=== PATIENT | female | born 1990 | race Two or more races ===

== ENCOUNTER 2024-06-01 08:48 | Emergency (ER) | payer OTHER ==
[2024-06-01 09:11] VITALS: BMI 26.4
[2024-06-01] MEDS ORDERED: IBUPROFEN 400 MG TABLET (FP) PO ONE (10:12)
[2024-06-01] MEDS ORDERED: ACETAMINOPHEN 500 MG TABLET (FP) ONE (10:12)
[2024-06-01] MEDS ORDERED: LIDOCAINE VISCOUS 2% ORAL/TOP 15 ML UNIT-DOSE CUP ONE (10:16)
[2024-06-01] MEDS: IBUPROFEN 400 MG TABLET (FP) PO ONE (10:28)
[2024-06-01] MEDS: LIDOCAINE VISCOUS 2% ORAL/TOP 15 ML UNIT-DOSE CUP MM ONE (10:29)
[2024-06-01] MEDS: ACETAMINOPHEN 500 MG TABLET (FP) PO ONE (10:29)
[2024-06-01 10:34] LABS: THROAT:GRP A STREP NOT DETECTED (NOTDETECTED)
[2024-06-01 12:42] VITALS: BP 110/58; PULSE 97; RESP 16; TEMP 98.3
== END 2024-06-01 13:29 | disposition home or self-care (01) ==
LOC: JER 08:48
DX: R50.9 Fever, unspecified (principal); R51.9 Headache, unspecified; J02.9 Acute pharyngitis, unspecified; R05.9 Cough, unspecified; M79.10 Myalgia, unspecified site; J06.9 Acute upper respiratory infection, unspecified; Z20.822 Contact with and (suspected) exposure to COVID-19
CPT/HCPCS: 0241U-QW; 87651; 93005; 93010; 99284-25